=== PATIENT | female | born 1975 | race Caucasian/White ===

== ENCOUNTER 2016-10-08 06:51 | Emergency (ER) | payer SELFPAY ==
[~2016-10-08] VITALS: Ht 177.8 cm; Wt 72.6 kg
[~2016-10-08 06:51] MED LIST: ATARAX25 MG PO; ATIVAN0.5 MG PO; ATIVAN1 MG PO; CIPROFLOXACIN500 MG PO; CITALOPRAM HYDR20 MG PO; CYMBALTA30 M1 PO; KENALOG 0.5% OI15 GM T; MULTIVITAMIN1 CTB PO; TOPAMAX25 M1 PO; TRAMADOL HCL50 MG PO; VICODIN 5/500 505 MG PO; VICODIN 500 MG-1 TAB PO; VISTARIL50 MG PO; VITAMIN B1250 MCG PO; ZYRTEC10 M1 PO
[2016-10-08 06:59] VITALS: BP 121/80
[2016-10-08 07:44] LABS: BILIRUBIN NEGATIVE (NEGATIVE); BLOOD 1+ (NEGATIVE); CLARITY CLOUDY (CLEAR); COLOR YELLOW (YELLOW); GLUCOSE NEGATIVE (NEGATIVE); KETONE NEGATIVE (NEGATIVE); LEUKO ESTERASE NEGATIVE (NEGATIVE); NITRITE NEGATIVE (NEGATIVE); PH 5.5 (5.0-9.0); PROTEIN NEGATIVE (NEGATIVE); SPECIFIC GRAVITY >= 1.030 (1.005-1.030); UROBILINOGEN 0.2 E.U./dl (0.2-1.0)
[2016-10-08 07:50] LABS: BACTERIA TRACE; EPITHELIAL CELLS 16-20; MUCOUS 1+; URINE REFLEX COMMENT YES (NO); WBC 0-2 wbc/hpf (0-5)
[2016-10-08] MEDS ORDERED: Motrin,Rufen800 MG PO (08:12)
== END 2016-10-08 08:20 | disposition home or self-care (01) ==
LOC: ED 06:51
PROVIDERS: Emergency Medicine
DX: M54.5 Low back pain (principal)

== ENCOUNTER 2017-04-29 08:11 | Emergency (ER) | payer BC ==
[~2017-04-29] VITALS: Ht 177.8 cm; Wt 70.3 kg
[~2017-04-29 08:11] MED LIST changes: +Motrin,Rufen800 MG PO
[2017-04-29 08:24] VITALS: BP 150/90
[2017-04-29] MEDS ORDERED: CYCLOBENZAPRINE10 MG PO (08:40)
[2017-04-29] MEDS ORDERED: NAPROSYN500 MG PO (08:40)
== END 2017-04-29 09:05 | disposition home or self-care (01) ==
LOC: ED 08:11
DX: M54.5 Low back pain (principal); F17.200 Nicotine dependence, unspecified, uncomplicated; Z88.8 Allergy status to other drugs, medicaments and biological substances; W00.0XXA Fall on same level due to ice and snow, initial encounter; Y93.89 Activity, other specified; Y92.89 Other specified places as the place of occurrence of the external cause; Y99.8 Other external cause status

== ENCOUNTER 2017-11-06 12:23 | Emergency (ER) | payer SELFPAY ==
[~2017-11-06] VITALS: Ht 177.8 cm; Wt 68.0 kg
[~2017-11-06 12:23] MED LIST changes: +CYCLOBENZAPRINE10 MG PO; +NAPROSYN500 MG PO
[2017-11-06 12:26] VITALS: BP 414/93
[2017-11-06] MEDS ORDERED: CYCLOBENZAPRINE10 MG PO (15:21)
[2017-11-06] MEDS ORDERED: MEDROL DOSEPAK4 MG PO (15:21)
== END 2017-11-06 14:50 | disposition home or self-care (01) ==
LOC: ED 12:23
DX: M25.552 Pain in left hip (principal); F17.200 Nicotine dependence, unspecified, uncomplicated; Z88.8 Allergy status to other drugs, medicaments and biological substances

== ENCOUNTER 2018-03-16 21:35 | Emergency (ER) | payer OTHER ==
[~2018-03-16] VITALS: Ht 175.2 cm; Wt 68.0 kg
[~2018-03-16 21:35] MED LIST changes: +MEDROL DOSEPAK4 MG PO
[2018-03-16 21:38] VITALS: BP 148/83
== END 2018-03-16 23:48 | disposition home or self-care (01) ==
LOC: ED 21:35
DX: R51 Headache (principal); H53.9 Unspecified visual disturbance; Z88.8 Allergy status to other drugs, medicaments and biological substances

== ENCOUNTER 2018-11-13 08:52 | Emergency (ER) | payer OTHER ==
[~2018-11-13] VITALS: Ht 177.8 cm; Wt 74.8 kg
[2018-11-13 08:53] VITALS: BP 142/68
[2018-11-13 09:47] LABS: BASO # 0.1 10*3/uL (0.0-0.1); BASO % 0.7 % (0.0-1.0); EOS # 0.1 10*3/uL (0.0-0.4); EOS % 1.5 % (1.0-4.0); HEMATOCRIT 42.1 % (37.0-47.0); HEMOGLOBIN 13.4 g/dl (12.0-16.0); LYMPH # 2.2 10*3/uL (1.3-4.4); LYMPH % 32.1 % (27.0-41.0); MEAN CELL VOLUME 91.5 fl (81.0-99.0); MEAN CORPUSCULAR HGB 29.1 pg (27.0-31.0); MEAN CORPUSCULAR HGB CONC 31.8 g/dl (33.0-37.0); MEAN PLATELET VOLUME 12.1 fl (9.6-12.3); MONO # 0.5 10*3/uL (0.1-1.0); MONO % 7.9 % (3.0-9.0); NEUT # 3.9 10*3/uL (2.3-7.9); NEUT % 57.5 % (47.0-73.0); PLATELET COUNT AUTOMATED 261 10*3/uL (130-400); RED CELL DISTRI WIDTH 14.6 % (0-14.5); WHITE BLOOD COUNT 6.7 10*3/uL (4.8-10.8)
[2018-11-13 09:48] LABS: BILIRUBIN NEGATIVE (NEGATIVE); BLOOD TRACE-INTACT (NEGATIVE); CLARITY SL CLOUDY (CLEAR); COLOR YELLOW (YELLOW); GLUCOSE NEGATIVE (NEGATIVE); KETONE NEGATIVE (NEGATIVE); LEUKO ESTERASE NEGATIVE (NEGATIVE); NITRITE NEGATIVE (NEGATIVE); UROBILINOGEN 0.2 E.U./dl (0.2-1.0)
[2018-11-13 10:01] LABS: BACTERIA 2+; MUCOUS 1+; WBC 0-2 wbc/hpf (0-5)
[2018-11-13 10:06] LABS: ALBUMIN 3.7 gm/dl (3.1-4.5); ALKALINE PHOSPHATASE 61 U/L (45-117); BUN 11 mg/dl (7-24); CHLORIDE 107 mmol/L (98-107); CREATININE 0.92 mg/dL (0.55-1.02); LIPASE 128 U/L (73-393); POTASSIUM 4.1 mmol/L (3.5-5.1); SGOT/AST 17 IU/L (3-35); SGPT/ALT 18 U/L (12-78); SODIUM 139 mmol/L (136-145); TOTAL PROTEIN 7.8 gm/dL (6.4-8.2)
== END 2018-11-13 12:56 | disposition home or self-care (01) ==
LOC: ED 08:52
PROVIDERS: Emergency Medicine
DX: R10.31 Right lower quadrant pain (principal); R30.9 Painful micturition, unspecified; R11.0 Nausea; Z87.442 Personal history of urinary calculi

== ENCOUNTER 2019-04-12 20:09 | Emergency (ER) | payer OTHER ==
[~2019-04-12] VITALS: Ht 177.8 cm; Wt 70.3 kg
[2019-04-12 20:12] VITALS: BP 140/61
== END 2019-04-12 21:52 | disposition home or self-care (01) ==
LOC: ED 20:09
DX: M25.571 Pain in right ankle and joints of right foot (principal); M79.671 Pain in right foot; R26.89 Other abnormalities of gait and mobility; X58.XXXA Exposure to other specified factors, initial encounter; Y93.89 Activity, other specified; Y92.89 Other specified places as the place of occurrence of the external cause; Y99.8 Other external cause status

== ENCOUNTER 2019-10-03 11:42 | Emergency (ER) | payer OTHER ==
[~2019-10-03] VITALS: Ht 175.2 cm; Wt 72.6 kg
[2019-10-03 11:53] VITALS: BP 120/71
== END 2019-10-03 14:35 | disposition home or self-care (01) ==
LOC: ED 11:42
DX: S63.501A Unspecified sprain of right wrist, initial encounter (principal); G43.909 Migraine, unspecified, not intractable, without status migrainosus; F41.9 Anxiety disorder, unspecified; F17.200 Nicotine dependence, unspecified, uncomplicated; Z79.899 Other long term (current) drug therapy; W18.40XA Slipping, tripping and stumbling without falling, unspecified, initial encounter; Y93.89 Activity, other specified; Y92.89 Other specified places as the place of occurrence of the external cause; Y99.8 Other external cause status

== ENCOUNTER 2020-08-17 08:17 | Emergency (ER) | payer OTHER ==
[~2020-08-17] VITALS: Wt 72.6 kg
[2020-08-17 08:22] VITALS: BP 119/72
[2020-08-17] MEDS ORDERED: CYCLOBENZAPRINE5 M3 PO (10:40)
== END 2020-08-17 11:16 | disposition home or self-care (01) ==
LOC: ED 08:17
DX: M62.830 Muscle spasm of back (principal); M25.552 Pain in left hip; R51.9 Headache, unspecified; M25.511 Pain in right shoulder; M25.512 Pain in left shoulder; M54.2 Cervicalgia; Z88.8 Allergy status to other drugs, medicaments and biological substances; Z79.899 Other long term (current) drug therapy; W10.8XXA Fall (on) (from) other stairs and steps, initial encounter; Y93.89 Activity, other specified; Y92.89 Other specified places as the place of occurrence of the external cause; Y99.8 Other external cause status

== ENCOUNTER 2021-02-17 08:31 | Emergency (ER) | payer OTHER ==
[~2021-02-17] VITALS: Ht 175.2 cm; Wt 72.6 kg
[~2021-02-17 08:31] MED LIST changes: +CYCLOBENZAPRINE5 M3 PO
[2021-02-17 08:40] VITALS: BP 136/88
[2021-02-17] MEDS ORDERED: VISTARIL25 MG PO (09:08)
[2021-02-17] MEDS ORDERED: CELEXA10 MG PO (09:09)
== END 2021-02-17 09:25 | disposition home or self-care (01) ==
LOC: ED 08:31
DX: F41.9 Anxiety disorder, unspecified (principal); Z88.8 Allergy status to other drugs, medicaments and biological substances

== ENCOUNTER 2021-03-22 19:59 | Emergency (ER) | payer OTHER ==
[~2021-03-22] VITALS: Ht 177.8 cm; Wt 72.6 kg
[~2021-03-22 19:59] MED LIST changes: +CELEXA10 MG PO; +VISTARIL25 MG PO
[2021-03-22 20:05] VITALS: BP 137/87
== END 2021-03-22 20:45 | disposition home or self-care (01) ==
LOC: ED 19:59
DX: F41.9 Anxiety disorder, unspecified (principal); Z88.8 Allergy status to other drugs, medicaments and biological substances

== ENCOUNTER 2021-03-22 21:25 | Emergency (ER) | payer OTHER ==
[~2021-03-22] VITALS: Ht 177.8 cm; Wt 72.6 kg
[2021-03-22 21:31] VITALS: BP 122/93
== END 2021-03-23 00:02 | disposition home or self-care (01) ==
LOC: ED 21:25
DX: R00.0 Tachycardia, unspecified (principal); F41.9 Anxiety disorder, unspecified; I49.3 Ventricular premature depolarization; Z88.8 Allergy status to other drugs, medicaments and biological substances

== ENCOUNTER 2021-05-10 10:59 | Emergency (ER) | payer OTHER ==
[~2021-05-10] VITALS: Ht 177.8 cm; Wt 77.1 kg
[2021-05-10 11:22] VITALS: BP 136/76
[2021-05-10 12:19] LABS: BASO % 0.5 % (0.0-1.0); EOS % 0.7 % (1.0-4.0); HEMATOCRIT 37.3 % (37.0-47.0); LYMPH # 0.2 10*3/uL (1.3-4.4); MEAN CELL VOLUME 85.4 fl (81.0-99.0); MEAN CORPUSCULAR HGB 28.8 pg (27.0-31.0); MEAN CORPUSCULAR HGB CONC 33.8 g/dl (33.0-37.0); MEAN PLATELET VOLUME 11.8 fl (9.6-12.3); MONO # 0.6 10*3/uL (0.1-1.0); NEUT # 4.7 10*3/uL (2.3-7.9); NEUT % 84.6 % (47.0-73.0); PLATELET COUNT AUTOMATED 236 10*3/uL (130-400); RED BLOOD COUNT 4.37 10*6/uL (4.10-5.10); RED CELL DISTRI WIDTH 13.8 % (0-14.5); WHITE BLOOD COUNT 5.5 10*3/uL (4.8-10.8)
[2021-05-10 12:38] LABS: ALBUMIN 3.5 gm/dl (3.1-4.5); ALKALINE PHOSPHATASE 64 U/L (45-117); BUN 10 mg/dl (7-24); CHLORIDE 109 mmol/L (98-107); LIPASE 70 U/L (73-393); POTASSIUM 3.6 mmol/L (3.5-5.1); SGOT/AST 18 IU/L (3-35); SGPT/ALT 29 U/L (12-78); SODIUM 137 mmol/L (136-145); TOTAL PROTEIN 7.6 gm/dL (6.4-8.2)
[2021-05-10] MEDS ORDERED: Motrin,Rufen800 MG PO (14:51)
== END 2021-05-10 15:00 | disposition home or self-care (01) ==
LOC: ED 10:59
PROVIDERS: Emergency Medicine
DX: B34.9 Viral infection, unspecified (principal); Z20.822 Contact with and (suspected) exposure to COVID-19; Z88.8 Allergy status to other drugs, medicaments and biological substances; Z79.899 Other long term (current) drug therapy

== ENCOUNTER 2022-10-13 11:29 | Emergency (ER) | payer OTHER ==
[~2022-10-13] VITALS: Ht 175.2 cm; Wt 81.6 kg
[2022-10-13 11:38] VITALS: BP 132/80
[2022-10-13] MEDS ORDERED: CLONAZEPAM0.5 M2 PO (11:39)
[2022-10-13] MEDS ORDERED: SERTRALINE HYD100 MG PO (11:39)
[2022-10-13] MEDS ORDERED: TRAZODONE50 MG PO (11:39)
== END 2022-10-13 13:00 | disposition home or self-care (01) ==
LOC: ED 11:29
DX: M19.012 Primary osteoarthritis, left shoulder (principal); Z88.8 Allergy status to other drugs, medicaments and biological substances; G43.909 Migraine, unspecified, not intractable, without status migrainosus; F41.9 Anxiety disorder, unspecified

== ENCOUNTER 2022-11-22 16:25 | Emergency (ER) | payer OTHER ==
[~2022-11-22 16:25] MED LIST changes: +CLONAZEPAM0.5 M2 PO; +SERTRALINE HYD100 MG PO; +TRAZODONE50 MG PO
== END 2022-11-22 17:38 | disposition left against medical advice (07) ==
LOC: ED 16:25
DX: H93.90 Unspecified disorder of ear, unspecified ear (principal); Z88.8 Allergy status to other drugs, medicaments and biological substances; Z53.21 Procedure and treatment not carried out due to patient leaving prior to being seen by health care provider

== ENCOUNTER 2025-01-14 08:27 | Emergency (ER) | payer OTHER ==
[~2025-01-14] VITALS: Ht 175.2 cm; Wt 77.1 kg
[2025-01-14 08:47] VITALS: BP 133/69
[2025-01-14 09:17] LABS: BASO # 0.0 10*3/uL (0.0-0.1); BASO % 0.3 % (0.0-1.0); EOS # 0.0 10*3/uL (0.0-0.4); EOS % 0.3 % (1.0-4.0); MEAN CELL VOLUME 90.4 fl (81.0-99.0); MEAN CORPUSCULAR HGB 29.3 pg (27.0-31.0); MEAN PLATELET VOLUME 11.8 fl (9.6-12.3); MONO # 0.5 10*3/uL (0.1-1.0); MONO % 5.3 % (3.0-9.0); NEUT # 7.1 10*3/uL (2.3-7.9); NEUT % 77.5 % (47.0-73.0); NUCLEATED RED BLOOD CELL 0.0 % (0.0-0.0); NUCLEATED RED BLOOD CELL 0.0 10*3/uL (0.0-0.0); PLATELET COUNT AUTOMATED 236 10*3/uL (130-400); RED CELL DISTRI WIDTH 13.9 % (0-14.5)
[2025-01-14 09:36] LABS: BUN 13 mg/dl (9-23); SGPT/ALT 43 U/L (5-49)
== END 2025-01-14 10:05 | disposition home or self-care (01) ==
LOC: ED 08:27
PROVIDERS: Student in an Organized Health Care Education/Training Program
DX: R10.13 Epigastric pain (principal); R14.1 Gas pain; Z79.899 Other long term (current) drug therapy